=== PATIENT | female | born 1955 | race Caucasian/White ===

== ENCOUNTER 2017-02-09 15:51 | Emergency (ER) | payer SELFPAY ==
[2017-02-09] MEDS ORDERED: BENZONATATE 100 MG CAPSULE PO ONE (17:28)
[2017-02-09] MEDS ORDERED: ALBUTEROL SULFATE 0.083% NEB 2.5 MG/3 ML AMPUL NEB ONE (17:28)
[2017-02-09] MEDS ORDERED: PREDNISONE 20 MG TABLET PO ONE (17:28)
--- NOTE | 2017-02-09 17:33 | ER Document Report ---
ED Respiratory Problem - General Chief Complaint: Cough Stated Complaint: COUGH Time Seen by Provider: 02/09/17 17:24 Notes: 61 yo female c/o cough, chest congestion and shortness of breath x 1 wk. + subjective fever. + hx/o pneumonia. + smoker TRAVEL OUTSIDE OF THE [place] IN LAST 30 DAYS: No - HPI Patient complains to provider of: Cough, Short of breath Onset: Last week Duration: Continuous, Worse/persistent Cough: Nonproductive Sputum amount: Scant Associated symptoms: Chills, Congestion, Extertional dyspnea. denies: Ankle/ leg swelling, Bloody cough, Chest pain/discomfort Similar symptoms previously: Yes Recently seen / treated by doctor: No - Related Data Allergies/Adverse Reactions: Sulfa (Sulfonamide Antibiotics) Allergy (Verified 02/09/17 15:55) Past Medical History - General Information source: Patient - Social History Smoking Status: Current Every Day Smoker Chew tobacco use (# tins/day): No Frequency of alcohol use: None Drug Abuse: None Lives with: Family Family History: Reviewed & Not Pertinent Pulmonary Medical History: Reports: Hx Pneumonia Renal/ Medical History: Denies: Hx Peritoneal Dialysis Review of Systems - Review of Systems Constitutional: No symptoms reported EENT: No symptoms reported Cardiovascular: No symptoms reported Respiratory: See HPI Gastrointestinal: No symptoms reported Genitourinary: No symptoms reported Female Genitourinary: No symptoms reported Musculoskeletal: No symptoms reported Skin: No symptoms reported Hematologic/Lymphatic: No symptoms reported Neurological/Psychological: No symptoms reported Physical Exam - Vital signs Vitals: Temp Pulse Resp BP Pulse Ox 98.7 F 91 18 123/65 93 02/09/17 15:55 02/09/17 15:55 02/09/17 15:55 02/09/17 15:55 02/09/17 15:55 Interpretation: Normal - General General appearance: Appears well, Alert - HEENT Head: Normocephalic, Atraumatic Eyes: Normal Pupils: PERRL - Respiratory Respiratory status: No respiratory distress Chest status: Nontender Breath sounds: Rhonchi, Wheezing Chest palpation: Normal - Cardiovascular Rhythm: Regular Heart sounds: Normal auscultation Murmur: No - Abdominal Inspection: Normal Distension: No distension Bowel sounds: Normal Tenderness: Nontender Organomegaly: No organomegaly - Back Back: Normal, Nontender - Extremities General upper extremity: Normal inspection, Nontender, Normal color, Normal ROM , Normal temperature General lower extremity: Normal inspection, Nontender, Normal color, Normal ROM , Normal temperature, Normal weight bearing. No: Solomon's sign - Neurological Neuro grossly intact: Yes Cognition: Normal Orientation: AAOx4 [place] Coma Scale Eye Opening: Spontaneous [place] Coma Scale Verbal: Oriented Yenni Coma Scale Motor: Obeys Commands Yenni Coma Scale Total: 15 Speech: Normal Motor strength normal: LUE, RUE, LLE, RLE Sensory: Normal - Psychological Associated symptoms: Normal affect, Normal mood - Skin Skin Temperature: Warm Skin Moisture: Dry Skin Color: Normal Course - Re-evaluation Re-evalutation: 02/09/17 18:20 chest xray is negative. results reviewed with patient. breath sounds improved after neb. pt reports feeling better after treatment. speaking without difficulty. H&P c/w URI/bronchitis. low suspicion for pneumonia, CHF, pneumothorax. will treat with bronchodilators, oral steroid and cough suppressant. pt agreeable with plan and stable for discharge - Vital Signs Vital signs: Temp Pulse Resp BP Pulse Ox 98.7 F 91 18 123/65 93 02/09/17 15:55 02/09/17 15:55 02/09/17 15:55 02/09/17 15:55 02/09/17 15:55 Discharge - Discharge Clinical Impression: Bronchitis Condition: Stable Disposition: HOME, SELF-CARE Instructions: Bronchitis ([facility]), Inhaled Bronchodilators ([facility]), Steroid Medication, Cough Suppressant & Expectorant Medications Additional Instructions: Your xray is negative for pneumonia I am treating your for bronchitis Take medications as prescribed Stop smoking follow up with your primary care if symptoms persist return to ER for any worsening Prescriptions: Albuterol Sulfate [Proair HFA Inhalation Aerosol 8.5 gm MDI] 2 puff IH Q4H PRN # 1 mdi PRN Reason: Phenylephrine HCl/Cod/Prometh [Phenergan Vc-Codeine Syrup] 5 - 10 ml PO Q4H # 120 ml Prednisone [Deltasone 10 mg Tablet] 10 mg PO ASDIR PRN #21 tablet PRN Reason:
--- NOTE | 2017-02-09 18:12 | RADIOLOGY REPORT (SQ) ---
EXAM DESCRIPTION: CHEST PA/LAT COMPLETED DATE/TIME: 02/09/2017 6:05 pm REASON FOR STUDY: cough x 1 wk COMPARISON: None. EXAM PARAMETERS: NUMBER OF VIEWS: two views TECHNIQUE: Digital Frontal and Lateral radiographic views of the chest acquired. RADIATION DOSE: NA LIMITATIONS: none FINDINGS: LUNGS AND PLEURA: No opacities, masses or pneumothorax. No pleural effusion. MEDIASTINUM AND HILAR STRUCTURES: No masses or contour abnormalities. HEART AND VASCULAR STRUCTURES: Heart normal size. No evidence for failure. BONES: No acute findings. HARDWARE: None in the chest. OTHER: No other significant finding. IMPRESSION: NO SIGNIFICANT RADIOGRAPHIC FINDING IN THE CHEST. TECHNICAL DOCUMENTATION: JOB ID: [id number] [employer]- All Rights Reserved
[2017-02-09 18:44] VITALS: BP 111/49
== END 2017-02-09 18:43 | disposition home or self-care (01) ==
LOC: ER 15:51
DX: J40 Bronchitis, not specified as acute or chronic (principal); R05 Cough; R09.89 Other specified symptoms and signs involving the circulatory and respiratory systems; R06.02 Shortness of breath; R50.9 Fever, unspecified; F17.200 Nicotine dependence, unspecified, uncomplicated
CPT/HCPCS: 94640; 99283; 71020; J7512

== ENCOUNTER 2017-02-14 09:16 | Inpatient (IN) | payer SELFPAY ==
[2017-02-14] MEDS ORDERED: METHYLPREDNISOLONE INJ 125 MG/2 ML SDV IV ONE (09:30)
[2017-02-14] MEDS ORDERED: IPRATROPIUM/ALBUTEROL 0.5-2.5 MG/3 ML AMPUL NEB ONE ×3 (09:30→09:31)
[2017-02-14] MEDS ORDERED: CEFTRIAXONE 1 GM/D5W RTU 1 GM/50 ML RTUPB IV ONE (09:30)
--- NOTE | 2017-02-14 09:32 | ER Document Report ---
ED Medical Screen (RME) - General Chief Complaint: Breathing Difficulty Stated Complaint: DIFFICULTY BREATHING Time Seen by Provider: 02/14/17 09:30 Mode of Arrival: Ambulatory Information source: Patient Notes: 61-year-old smoker presents with complaints of respiratory difficulty. Patient seen here 5 days prior discharged home as URI syndrome. Patient notes symptoms have worsens, she is noted to be hypoxic tachycardic tachypneic on arrival coarse productive sputum I have greeted and performed a rapid initial assessment of this patient. A comprehensive ED assessment and evaluation of the patient, analysis of test results and completion of the medical decision making process will be conducted by additional ED providers. PHYSICAL EXAMINATION: GENERAL: Patient in moderate respiratory distress HEAD: Atraumatic, normocephalic. EYES: Pupils equal round extraocular movements intact, conjunctiva are normal. ENT: Nares patent NECK: Normal range of motion LUNGS: Moderate respiratory distress coarse wheezing rhocnhi Musculoskeletal: Normal range of motion NEUROLOGICAL: Normal speech, normal gait. PSYCH: Normal mood, normal affect. SKIN: Warm, Dry, normal turgor, no rashes or lesions noted. TRAVEL OUTSIDE OF THE [place] IN LAST 30 DAYS: No - Related Data Allergies/Adverse Reactions: Sulfa (Sulfonamide Antibiotics) Allergy (Verified 02/14/17 09:20) Past Medical History Pulmonary Medical History: Reports: Hx Pneumonia Renal/ Medical History: Denies: Hx Peritoneal Dialysis Physical Exam - Vital signs Vitals: Temp Pulse Resp BP Pulse Ox 98.5 F 113 H 22 H 140/73 H 86 L 02/14/17 09:20 02/14/17 09:20 02/14/17 09:20 02/14/17 09:20 02/14/17 09:20 Course - Vital Signs Vital signs: Temp Pulse Resp BP Pulse Ox 98.5 F 113 H 22 H 140/73 H 86 L 02/14/17 09:20 02/14/17 09:20 02/14/17 09:20 02/14/17 09:20 02/14/17 09:20
--- NOTE | 2017-02-14 09:59 | ER Document Report ---
ED Respiratory Problem - General Chief Complaint: Breathing Difficulty Stated Complaint: DIFFICULTY BREATHING Time Seen by Provider: 02/14/17 09:30 Mode of Arrival: Ambulatory TRAVEL OUTSIDE OF THE [place] IN LAST 30 DAYS: No - HPI Patient complains to provider of: Cough, Short of breath Onset: Other - 2 weeks Duration: Worse/persistent Quality of pain: Achy Severity: Mild Pain Level: 1 Context: Smoker Short of Breath: Moderate Chest pain/discomfort: Tightness Cough: Productive Sputum amount: Small Sputum color: Green, Yellow Sputum consistency: Mucoid At home treatment: Bronchodilators Associated symptoms: Congestion, Cough, Difficulty breathing, Extertional dyspnea Similar symptoms previously: Yes Recently seen / treated by doctor: Yes Notes: Patient is a 61-year-old female with a history of acid reflux, who smokes currently approximately one half pack per day, presenting to the emergency room today complaining of productive cough with yellowish greenish phlegm, mild chest pain from coughing, which worsens with movement, and difficulty breathing with dyspnea on exertion that has been worsening over the past 2 weeks, she was seen in this department on 02/09/2017 for similar symptoms and diagnosed with viral upper respiratory illness, she was started on pro-air inhaler which she has been using at home, but her symptoms have worsened significantly to the point where she can barely ambulate around her house without becoming short of breath, on arrival she is tachypneic and hypoxic, she denies any recent travel or periods of immobilization, no history of blood clots - Related Data Allergies/Adverse Reactions: codeine Allergy (Verified 02/14/17 10:47) Sulfa (Sulfonamide Antibiotics) Allergy (Verified 02/14/17 09:20) Home Medications: Current Home Medications Omeprazole 40 mg PO DAILY 02/14/17 [History] Past Medical History - General Information source: Patient - Social History Smoking Status: Current Every Day Smoker Chew tobacco use (# tins/day): No Frequency of alcohol use: None Drug Abuse: None Family History: Reviewed & Not Pertinent Pulmonary Medical History: Reports: Hx Pneumonia Renal/ Medical History: Denies: Hx Peritoneal Dialysis GI Medical History: Reports: Hx Gastroesophageal Reflux Disease Review of Systems - Review of Systems Constitutional: No symptoms reported EENT: No symptoms reported Cardiovascular: No symptoms reported Respiratory: See HPI Gastrointestinal: No symptoms reported Genitourinary: No symptoms reported Female Genitourinary: No symptoms reported Musculoskeletal: No symptoms reported Skin: No symptoms reported Hematologic/Lymphatic: No symptoms reported Neurological/Psychological: No symptoms reported -: Yes All other systems reviewed and negative Physical Exam - Vital signs Vitals: Temp Pulse Resp BP Pulse Ox 98.5 F 113 H 22 H 140/73 H 86 L 02/14/17 09:20 02/14/17 09:20 02/14/17 09:20 02/14/17 09:20 02/14/17 09:20 Interpretation: Tachycardic, Hypoxic, Tachypneic - General General appearance: Appears well, Alert - HEENT Head: Normocephalic, Atraumatic Eyes: Normal Pupils: PERRL - Respiratory Respiratory status: Labored, Tachypnea Chest status: Nontender Breath sounds: Productive cough, Rhonchi, Wheezing Chest palpation: Normal - Cardiovascular Rhythm: Regular, Tachycardia Heart sounds: Normal auscultation Murmur: No - Abdominal Inspection: Normal Distension: No distension Bowel sounds: Normal Tenderness: Nontender Organomegaly: No organomegaly - Back Back: Normal, Nontender - Extremities General upper extremity: Normal inspection, Nontender, Normal color, Normal ROM , Normal temperature General lower extremity: Normal inspection, Nontender, Normal color, Normal ROM , Normal temperature, Normal weight bearing. No: Solomon's sign - Neurological Neuro grossly intact: Yes Cognition: Normal Orientation: AAOx4 [place] Coma Scale Eye Opening: Spontaneous Yenni Coma Scale Verbal: Oriented Yenni Coma Scale Motor: Obeys Commands [place] Coma Scale Total: 15 Speech: Normal Motor strength normal: LUE, RUE, LLE, RLE Sensory: Normal - Psychological Associated symptoms: Normal affect, Normal mood - Skin Skin Temperature: Warm Skin Moisture: Dry Skin Color: Normal Course - Re-evaluation Re-evalutation: 02/14/17 11:43 Patient becomes tachypneic and hypoxic once oxygen is removed, she continues to require oxygen to keep sats at around 90% or greater, she has a productive cough , leukocytosis, she was recently diagnosed with viral upper respiratory illness , was placed on steroids with albuterol and cough suppressant medication, symptoms have worsened requiring her repeat visit to the emergency room today, symptoms are consistent with COPD exacerbation, with likely underlying pneumonia that is not present on imaging today, therefore patient was discussed with the hospitalist service who agreed to admit for further evaluation and treatment - Vital Signs Vital signs: Temp Pulse Resp BP Pulse Ox 98.5 F 113 H 21 H 118/76 95 02/14/17 09:20 02/14/17 09:20 02/14/17 11:01 02/14/17 11:01 02/14/17 10:01 - Laboratory Result Diagrams: 02/14/17 09:50 02/14/17 09:50 Laboratory results interpreted by me: 02/14/17 02/14/17 09:50 09:50 WBC 19.3 H RDW 14.6 H Seg Neutrophils % 82.6 H Lymphocytes % 9.2 L Absolute Neutrophils 16.0 H Absolute Monocytes 1.5 H Glucose 127 H Calcium 10.4 H Direct Bilirubin 0.5 H Alkaline Phosphatase 165 H Creatine Kinase 175 H - Diagnostic Test Radiology reviewed: Image reviewed, Reports reviewed - EKG Interpretation by Me EKG shows normal: Sinus rhythm Rate: Tachycardia Critical Care Note - Critical Care Note Total time excluding time spent on procedures (mins): 40 Comments: Patient arrived in moderate respiratory distress with tachypnea and hypoxia, requiring immediate intervention, close monitoring and admission Discharge - Discharge Clinical Impression: COPD exacerbation Pneumonia Qualifiers: Pneumonia type: due to unspecified organism Laterality: unspecified laterality Lung location: unspecified part of lung Qualified Code(s): J18.9 - Pneumonia, unspecified organism Condition: Fair Disposition: ADMITTED INPATIENT Admitting Provider: Hospitalist Unit Admitted: Telemetry Referrals: FISH FRANKS MD [Primary Care Provider] - Follow up as needed
[2017-02-14 10:01] LABS: ABSOLUTE BASOPHILS # (AUTO) 0.1 10^3/uL (0.0-0.2); ABSOLUTE LYMPHOCYTES (AUTO) 1.8 10^3/uL (0.5-4.7); ABSOLUTE MONOCYTES (AUTO) 1.5 10^3/uL (0.1-1.4); BASOPHILS % (AUTO) 0.5 % (0-2); EOSINOPHILS % (AUTO) 0.1 % (0-6); HEMATOCRIT 38.9 % (36.0-47.0); HEMOGLOBIN 13.3 g/dL (12.0-15.5); LYMPHOCYTES % (AUTO) 9.2 % (13-45); MEAN CORPUSCULAR HEMOGLOBIN 30.2 pg (27.0-33.4); MEAN CORPUSCULAR HGB CONC 34.1 g/dL (32.0-36.0); MEAN CORPUSCULAR VOLUME 88 fl (80-97); MONOCYTES % (AUTO) 7.6 % (3-13); RED CELL DISTRIBUTION WIDTH 14.6 % (11.5-14.0); SEGMENTED NEUTROPHILS % (AUTO) 82.6 % (42-78); WHITE BLOOD COUNT 19.3 10^3/uL (4.0-10.5)
[2017-02-14 10:02] LABS: VENOUS BLOOD BASE EXCESS 0.9 mmol/L; VENOUS BLOOD HCO3 25.9 mmol/L (20-32); VENOUS BLOOD PCO2 42.6 mmHg (35-63); VENOUS BLOOD PH 7.4 (7.30-7.42)
--- NOTE | 2017-02-14 10:09 | RADIOLOGY REPORT (SQ) ---
EXAM DESCRIPTION: CHEST SINGLE VIEW COMPLETED DATE/TIME: 02/14/2017 9:56 am REASON FOR STUDY: resp distress COMPARISON: 02/09/2017 EXAM PARAMETERS: NUMBER OF VIEWS: One view. TECHNIQUE: Single frontal radiographic view of the chest acquired. RADIATION DOSE: NA LIMITATIONS: None. FINDINGS: LUNGS AND PLEURA: No opacities, masses or pneumothorax. No pleural effusion. MEDIASTINUM AND HILAR STRUCTURES: No masses. Contour normal. HEART AND VASCULAR STRUCTURES: Heart normal in size. Normal vasculature. BONES: No acute findings. HARDWARE: None in the chest. OTHER: No other significant finding. IMPRESSION: NO ACUTE RADIOGRAPHIC FINDING IN THE CHEST. TECHNICAL DOCUMENTATION: JOB ID: [id number]
[2017-02-14 10:20] LABS: ALANINE AMINOTRANSFERASE 32 U/L (9-52); ALKALINE PHOSPHATASE 165 U/L (38-126); ANION GAP 13 (5-19); ASPARTATE AMINO TRANSFERASE 26 U/L (14-36); BILIRUBIN,DIRECT 0.5 mg/dL (0.0-0.4); BILIRUBIN,TOTAL 0.5 mg/dL (0.2-1.3); BLOOD UREA NITROGEN 7 mg/dL (7-20); CALCIUM 10.4 mg/dL (8.4-10.2); CARBON DIOXIDE 27 mmol/L (22-30); CHLORIDE 99 mmol/L (98-107); CREATINE KINASE 175 U/L (30-135); CREATININE RESULT 0.59 mg/dL (0.52-1.25); GLUCOSE 127 mg/dL (75-110); POTASSIUM 3.8 mmol/L (3.6-5.0); SODIUM 139.3 mmol/L (137-145); TOTAL PROTEIN 7.6 g/dL (6.3-8.2)
[2017-02-14 10:40] LABS: CREATINE KINASE MB 2.42 ng/mL (<4.55); TROPONIN I 0.017 ng/mL
[2017-02-14] MEDS ORDERED: BENZONATATE 100 MG CAPSULE PO ONE (11:05)
[2017-02-14] MEDS ORDERED: ALBUTEROL SULFATE 0.083% NEB 2.5 MG/3 ML AMPUL NEB ONE (11:05)
[2017-02-14] MEDS ORDERED: AZITHROMYCIN INJ 500 MG VIAL IV ONE (11:06)
[2017-02-14] MEDS ORDERED: ALBUTEROL SULFATE 0.083% NEB 2.5 MG/3 ML AMPUL NEB PRN (13:46)
[2017-02-14] MEDS ORDERED: ACETAMINOPHEN 325 MG TABLET PO PRN (13:46)
[2017-02-14] MEDS ORDERED: NORMAL SALINE 1000 ML 1,000 ML IV PRN (13:46)
[2017-02-14] MEDS ORDERED: ONDANSETRON HCL INJ/PF 4 MG/2 ML SDV IV PRN (13:53)
[2017-02-14] MEDS ORDERED: LEVOFLOXACIN 750 MG/D5W RTU 750 MG/150 ML RTUPB IV ONE (15:00)
--- NOTE | 2017-02-14 16:23 | PDOC H&P ---
History of Present Illness Admission Date/PCP: 02/14/17 13:46 FISH FRANKS MD Patient complains of: SOB History of Present Illness: MILADYS LINARES is a 61 year old female, who is a chronic smoker presents to the hospital of 2 weeks duration of shortness of breath. There is cough productive of yellowish phlegm. There is some mild sore throat and sinus congestion and subsequently followed by intermittent wheezing. There is associated sweating but no definite fever. The patient was seen in the emergency room 4 days ago and was prescribed bronchodilators and steroids. Recent reports that the x-ray did not reveal any acute infiltrate. She took the medication without relief. Symptoms got worse last night therefore she presents to the hospital for evaluation. Her sinus congestion improved as well as her sore throat but she started to develop some chest congestion as well. She was given bronchodilators in the emergency room and intravenous steroids and was referred for admission. Patient denies any chest pain dizziness or lightheadedness. Past Medical History Pulmonary Medical History: Reports: Pneumonia GI Medical History: Reports: Gastroesophageal Reflux Disease, Other - Umbilical hernia Past Surgical History Past Surgical History: Reports: Herniorrhaphy Social History Information Source: Patient Smoking Status: Current Every Day Smoker Frequency of Alcohol Use: None Hx Recreational Drug Use: No Drugs: None Family History Family History: DM, Malignancy - Breast, Other - Heart failure Parental Family History Reviewed: Yes Children Family History Reviewed: Yes Sibling(s) Family History Reviewed.: Yes Medication/Allergy Home Medications: Omeprazole 40 mg PO DAILY 02/14/17 Allergies/Adverse Reactions: codeine Allergy (Verified 02/14/17 10:47) Sulfa (Sulfonamide Antibiotics) Allergy (Verified 02/14/17 09:20) Review of Systems Constitutional: PRESENT: fatigue, weakness - Generalized. ABSENT: chills, fever (s), headache(s), night sweats, weight gain, weight loss Eyes: ABSENT: visual disturbances Ears: ABSENT: hearing changes Nose, Mouth, and Throat: ABSENT: mouth pain, vertigo Cardiovascular: PRESENT: dyspnea on exertion. ABSENT: chest pain, edema, orthropnea, palpitations Respiratory: PRESENT: cough, dyspnea, sputum. ABSENT: hemoptysis Gastrointestinal: ABSENT: abdominal pain, constipation, diarrhea, hematemesis, hematochezia, melena, nausea, vomiting Genitourinary: ABSENT: difficulty urinating, dysuria, hematuria Musculoskeletal: ABSENT: joint swelling Integumentary: ABSENT: rash, wounds Neurological: ABSENT: abnormal gait, abnormal speech, confusion, dizziness, focal weakness, syncope Psychiatric: ABSENT: anxiety, depression, homidical ideation, suicidal ideation Endocrine: ABSENT: cold intolerance, heat intolerance, polydipsia, polyuria Hematologic/Lymphatic: ABSENT: easy bleeding, easy bruising Physical Exam Vital Signs: Temp Pulse Resp BP Pulse Ox 98.5 F 113 H 18 106/58 L 91 L 02/14/17 09:20 02/14/17 09:20 02/14/17 13:01 02/14/17 13:01 02/14/17 13:01 General appearance: PRESENT: no acute distress, cooperative, mild distress Head exam: PRESENT: atraumatic, normocephalic Eye exam: PRESENT: conjunctiva pink, EOMI, PERRLA. ABSENT: scleral icterus Ear exam: PRESENT: normal external ear exam Mouth exam: PRESENT: moist, neck supple, tongue midline Neck exam: ABSENT: carotid bruit, JVD, lymphadenopathy, thyromegaly Respiratory exam: PRESENT: decreased breath sounds - Anteriorly bilateral, wheezes - Posteriorly bilateral mild. ABSENT: rales, rhonchi Cardiovascular exam: PRESENT: RRR. ABSENT: diastolic murmur, rubs, systolic murmur Pulses: PRESENT: normal dorsalis pedis pul Vascular exam: PRESENT: normal capillary refill GI/Abdominal exam: PRESENT: normal bowel sounds, soft. ABSENT: distended, guarding, mass, organolmegaly, rebound, tenderness Rectal exam: PRESENT: deferred Extremities exam: PRESENT: full ROM. ABSENT: calf tenderness, clubbing, pedal edema Neurological exam: PRESENT: alert, awake, oriented to person, oriented to place , oriented to time, oriented to situation, CN II-XII grossly intact. ABSENT: motor sensory deficit Psychiatric exam: PRESENT: appropriate affect, normal mood. ABSENT: homicidal ideation, suicidal ideation Skin exam: PRESENT: dry, intact, warm. ABSENT: cyanosis, rash Results Impressions: Chest X-Ray 02/14/17 09:30 IMPRESSION: NO ACUTE RADIOGRAPHIC FINDING IN THE CHEST. Assessment & Plan - Diagnosis (1) COPD exacerbation Is this a current diagnosis for this admission?: Yes (2) GERD (gastroesophageal reflux disease) Qualifiers: Esophagitis presence: without esophagitis Qualified Code(s): K21.9 - Gastro -esophageal reflux disease without esophagitis Is this a current diagnosis for this admission?: Yes - Time Time Spent: 50 to 70 Minutes Within: within 72 hours - Inpatient Certification Based on my medical assessment, after consideration of the patient's comorbidities, presenting symptoms, or acuity I expect that the services needed warrant INPATIENT care.: Yes I certify that my determination is in accordance with my understanding of Medicare's requirements for reasonable and necessary INPATIENT services [42 CFR 412.3e].: Yes Medical Necessity: Failure to Improve With Outpatient Therapy, Need for Nebulizer Therapy and Monitoring of Response, Risk of Complication if Not Cared For in Hospital Post 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 [id number] nebulizer will be done. Cultures of the sputum blood were obtained in the emergency room. We will begin intravenous antibiotic. DVT prophylaxis with Lovenox will be placed. Supplemental oxygen will be given. Further testing depends on the initial evaluation and response to treatment as outlined above.
[2017-02-14 18:12] LABS: APPEARANCE,URINE CLEAR; BILIRUBIN,URINE NEGATIVE (NEGATIVE); GLUCOSE, URINE >=500 mg/dL (NEGATIVE); KETONES,URINE NEGATIVE (NEGATIVE); LEUKOCYTE ESTERASE,URINE MODERATE (NEGATIVE); NITRITE,URINE POSITIVE (NEGATIVE); PROTEIN,URINE NEGATIVE (NEGATIVE); URINE SPECIFIC GRAVITY 1.006; UROBILINOGEN,URINE NEGATIVE mg/dL (<2.0)
[2017-02-14] MEDS: DOCUSATE SODIUM 100 MG CAPSULE PO SCH (18:12)
[2017-02-14] MEDS: METHYLPREDNISOLONE INJ 125 MG/2 ML SDV IV SCH (18:12)
[2017-02-14] MEDS: IPRATROPIUM/ALBUTEROL 0.5-2.5 MG/3 ML AMPUL NEB SCH ×2 (18:36→19:35)
--- NOTE | 2017-02-14 21:05 | EKG REPORT ---
SEVERITY:- OTHERWISE NORMAL ECG - SINUS TACHYCARDIA : Confirmed by: Tracy Marie MD 14-Feb-2017 21:03:15
[2017-02-14] MEDS ORDERED: LANSOPRAZOLE 30 MG TAB.RAP.DR PO ONE (21:30)
[2017-02-15] MEDS: IPRATROPIUM/ALBUTEROL 0.5-2.5 MG/3 ML AMPUL NEB SCH ×4 (01:42→20:03)
[2017-02-15] MEDS: METHYLPREDNISOLONE INJ 125 MG/2 ML SDV IV SCH ×3 (01:55→17:27)
[2017-02-15 04:38] LABS: ABSOLUTE LYMPHOCYTES (AUTO) 0.7 10^3/uL (0.5-4.7); ABSOLUTE MONOCYTES (AUTO) 0.3 10^3/uL (0.1-1.4); ABSOLUTE NEUT (AUTO) 11.8 10^3/uL (1.7-8.2); BASOPHILS % (AUTO) 0.1 % (0-2); HEMATOCRIT 35.3 % (36.0-47.0); HEMOGLOBIN 11.7 g/dL (12.0-15.5); HGB HCT DIFFERENCE -0.2; LYMPHOCYTES % (AUTO) 5.5 % (13-45); MEAN CORPUSCULAR HGB CONC 33.3 g/dL (32.0-36.0); MEAN CORPUSCULAR VOLUME 90 fl (80-97); MONOCYTES % (AUTO) 2.7 % (3-13); RED BLOOD COUNT 3.91 10^6/uL (3.72-5.28); RED CELL DISTRIBUTION WIDTH 14.5 % (11.5-14.0); SEGMENTED NEUTROPHILS % (AUTO) 91.7 % (42-78); WHITE BLOOD COUNT 12.8 10^3/uL (4.0-10.5)
[2017-02-15 04:47] LABS: ANION GAP 12 (5-19); BLOOD UREA NITROGEN 10 mg/dL (7-20); CALCIUM 9.5 mg/dL (8.4-10.2); CARBON DIOXIDE 22 mmol/L (22-30); CHLORIDE 103 mmol/L (98-107); CREATININE RESULT 0.61 mg/dL (0.52-1.25); PHOSPHORUS 3.4 mg/dL (2.5-4.5); SODIUM 137.3 mmol/L (137-145)
[2017-02-15 04:57] LABS: GLUCOSE 537 mg/dL (75-110)
[2017-02-15 05:00] LABS: POTASSIUM 4.8 mmol/L (3.6-5.0)
[2017-02-15] MEDS ORDERED: DEXTROSE 50%-WATER 25 GM/50 ML DISP.SYRIN IV PRN ×2 (05:03)
[2017-02-15] MEDS ORDERED: GLUCAGON,HUMAN RECOMB 1 MG INJ IM PRN (05:03)
[2017-02-15] MEDS ORDERED: DEXTROSE 40% GEL 15 GM TUBE PO PRN ×2 (05:03)
[2017-02-15] MEDS ORDERED: INSULIN LISPRO 100 UNIT/ML 3 ML VIAL SUBCUT PRN (05:03)
[2017-02-15] MEDS: LANSOPRAZOLE 30 MG TAB.RAP.DR PO SCH (05:22)
[2017-02-15] MEDS ORDERED: INSULIN LISPRO 100 UNIT/ML 3 ML VIAL SUBCUT ONE ×2 (05:30→10:30)
[2017-02-15] MEDS ORDERED: LANSOPRAZOLE 30 MG TAB.RAP.DR PO SCH (06:00)
[2017-02-15] MEDS: GUAIFENESIN/D-METHORPHAN (200-20 MG) SYRUP 10 ML PO PRN ×2 (08:18→18:54)
[2017-02-15] MEDS: ENOXAPARIN SODIUM INJ 40 MG/0.4 ML DISP.SYRIN SUBCUT SCH (09:30)
[2017-02-15] MEDS: LEVOFLOXACIN 750 MG/D5W RTU 750 MG/150 ML RTUPB IV SCH (09:31)
[2017-02-15] MEDS: METHADONE HCL 10 MG TABLET PO SCH (09:32)
[2017-02-15] MEDS: DOCUSATE SODIUM 100 MG CAPSULE PO SCH ×2 (09:32→17:27)
[2017-02-15] MEDS: INSULIN LISPRO 100 UNIT/ML 3 ML VIAL SUBCUT PRN ×2 (11:39→17:28)
[2017-02-15] MEDS: LACTULOSE SYRUP 20 GM/30 ML UDCUP PO SCH ×2 (11:39→17:27)
--- NOTE | 2017-02-15 15:31 | PDOC PROGRESS REPORT ---
Subjective Progress Note for:: 02/15/17 Subjective:: Patient reports that her breathing is doing better. She does report that she takes methadone daily but forgot to tell the admitting physician yesterday. Physical Exam Vital Signs: Temp Pulse Resp BP Pulse Ox 97.6 F 99 22 H 131/70 H 92 02/15/17 11:41 02/15/17 14:00 02/15/17 13:11 02/15/17 11:41 02/15/17 13:11 Intake & Output 02/14/17 02/15/17 02/16/17 06:59 06:59 06:59 Intake Total 3160 1559 Balance 3160 1559 Weight 65.2 kg General appearance: PRESENT: no acute distress Eye exam: PRESENT: conjunctiva pink. ABSENT: scleral icterus Mouth exam: PRESENT: moist, tongue midline Neck exam: ABSENT: JVD Respiratory exam: PRESENT: wheezes. ABSENT: rales, rhonchi Cardiovascular exam: PRESENT: RRR. ABSENT: diastolic murmur, rubs, systolic murmur GI/Abdominal exam: PRESENT: normal bowel sounds, soft. ABSENT: distended, guarding, mass, organolmegaly, rebound, tenderness Extremities exam: ABSENT: calf tenderness, clubbing, pedal edema Neurological exam: PRESENT: alert, awake, oriented to person, oriented to place , oriented to time, oriented to situation, CN II-XII grossly intact. ABSENT: motor sensory deficit Psychiatric exam: PRESENT: appropriate affect Skin exam: PRESENT: dry, intact, warm. ABSENT: cyanosis, rash Results Laboratory Results: 02/15/17 04:09 02/15/17 04:09 02/14/17 02/15/17 02/15/17 17:55 04:09 04:09 WBC 12.8 H RBC 3.91 Hgb 11.7 L Hct 35.3 L MCV 90 MCH 30.0 MCHC 33.3 RDW 14.5 H Plt Count 360 Seg Neutrophils % 91.7 H Lymphocytes % 5.5 L Monocytes % 2.7 L Eosinophils % 0.0 Basophils % 0.1 Absolute Neutrophils 11.8 H Absolute Lymphocytes 0.7 Absolute Monocytes 0.3 Absolute Eosinophils 0.0 Absolute Basophils 0.0 Sodium 137.3 Potassium 4.8 D Chloride 103 Carbon Dioxide 22 Anion Gap 12 BUN 10 Creatinine 0.61 Est GFR ( Amer) > 60 Est GFR (Non-Af Amer) > 60 Glucose 537 H* Calcium 9.5 Phosphorus 3.4 Magnesium 2.0 Urine Color STRAW Urine Appearance CLEAR Urine pH 7.0 Ur Specific [place] 1.006 Urine Protein NEGATIVE Urine Glucose (UA) >=500 H Urine Ketones NEGATIVE Urine Blood NEGATIVE Urine Nitrite POSITIVE H Ur Leukocyte Esterase MODERATE H Urine WBC (Auto) 19 Urine RBC (Auto) 0 Impressions: Chest X-Ray 02/14/17 09:30 IMPRESSION: NO ACUTE RADIOGRAPHIC FINDING IN THE CHEST. Assessment & Plan - Diagnosis (1) COPD exacerbation Is this a current diagnosis for this admission?: Yes Plan: We will continue with the IV steroids and nebulizers. She reports that her breathing is improved from yesterday. (2) GERD (gastroesophageal reflux disease) Qualifiers: Esophagitis presence: without esophagitis Qualified Code(s): K21.9 - Gastro -esophageal reflux disease without esophagitis Is this a current diagnosis for this admission?: Yes (3) Chronic pain Is this a current diagnosis for this admission?: Yes Plan: We will start the patient back on her usual dose of methadone 80 mg daily. I called the clinic and confirmed this dose myself. (4) Hyperglycemia Is this a current diagnosis for this admission?: Yes Plan: We will cover with sliding scale insulin. Most likely secondary to steroids. - Time Time Spent with patient: 25-34 minutes - Inpatient Certification Medical Necessity: Need Close Monitoring Due to Risk of Patient Decompensation
[2017-02-15] MEDS ORDERED: NICOTINE 14 MG/24 HR PATCH.TD24 TD ONE (19:00)
[2017-02-16] MEDS: GUAIFENESIN/D-METHORPHAN (200-20 MG) SYRUP 10 ML PO PRN ×2 (00:16→18:23)
[2017-02-16] MEDS: LACTULOSE SYRUP 20 GM/30 ML UDCUP PO SCH ×5 (00:17→23:34)
[2017-02-16] MEDS: IPRATROPIUM/ALBUTEROL 0.5-2.5 MG/3 ML AMPUL NEB SCH ×4 (02:24→20:24)
[2017-02-16] MEDS: METHYLPREDNISOLONE INJ 125 MG/2 ML SDV IV SCH (02:55)
[2017-02-16] MEDS: LANSOPRAZOLE 30 MG TAB.RAP.DR PO SCH (06:32)
[2017-02-16 06:52] LABS: HEMATOCRIT 34.4 % (36.0-47.0); HEMOGLOBIN 11.9 g/dL (12.0-15.5); HGB HCT DIFFERENCE 1.3; MEAN CORPUSCULAR HEMOGLOBIN 30.3 pg (27.0-33.4); MEAN CORPUSCULAR HGB CONC 34.5 g/dL (32.0-36.0); MEAN CORPUSCULAR VOLUME 88 fl (80-97); RED BLOOD COUNT 3.92 10^6/uL (3.72-5.28); RED CELL DISTRIBUTION WIDTH 14.2 % (11.5-14.0); WHITE BLOOD COUNT 20.2 10^3/uL (4.0-10.5)
[2017-02-16 06:59] LABS: ANION GAP 9 (5-19); BLOOD UREA NITROGEN 10 mg/dL (7-20); CALCIUM 9.6 mg/dL (8.4-10.2); CARBON DIOXIDE 24 mmol/L (22-30); CHLORIDE 104 mmol/L (98-107); CREATININE RESULT 0.52 mg/dL (0.52-1.25); GLUCOSE 295 mg/dL (75-110); POTASSIUM 4.3 mmol/L (3.6-5.0); SODIUM 137.2 mmol/L (137-145)
[2017-02-16 07:33] LABS: BAND NEUTROPHILS % (MANUAL) 1 % (3-5); BASOPHILS % (MANUAL) 0 % (0-2); EOSINOPHILS % (MANUAL) 0 % (0-6); LYMPHOCYTES % (MANUAL) 1 % (13-45); TOTAL CELLS COUNTED 100
[2017-02-16 07:34] LABS: ANISOCYTOSIS SLIGHT; TOXIC GRANULATION SLIGHT
[2017-02-16] MEDS: METHADONE HCL 10 MG TABLET PO SCH (08:37)
[2017-02-16] MEDS: INSULIN LISPRO 100 UNIT/ML 3 ML VIAL SUBCUT PRN ×2 (09:22→19:27)
[2017-02-16] MEDS: PREDNISONE 20 MG TABLET PO SCH (10:35)
[2017-02-16] MEDS: NICOTINE 14 MG/24 HR PATCH.TD24 TD SCH (10:36)
[2017-02-16] MEDS: LEVOFLOXACIN 750 MG/D5W RTU 750 MG/150 ML RTUPB IV SCH (10:37)
[2017-02-16] MEDS: DOCUSATE SODIUM 100 MG CAPSULE PO SCH ×2 (10:37→18:21)
[2017-02-16] MEDS: ENOXAPARIN SODIUM INJ 40 MG/0.4 ML DISP.SYRIN SUBCUT SCH (10:54)
--- NOTE | 2017-02-16 11:15 | PDOC PROGRESS REPORT ---
Subjective Progress Note for:: 02/16/17 Subjective:: complains of a nonproductive cough. Physical Exam Vital Signs: Temp Pulse Resp BP Pulse Ox 98.6 F 85 22 H 153/89 H 95 02/16/17 07:32 02/16/17 07:59 02/16/17 07:41 02/16/17 07:32 02/16/17 07:59 Intake & Output 02/15/17 02/16/17 02/17/17 06:59 06:59 06:59 Intake Total 3160 3367 Output Total 1900 Balance 3160 1467 Weight 65.2 kg 65.2 kg General appearance: PRESENT: no acute distress Eye exam: PRESENT: conjunctiva pink. ABSENT: scleral icterus Mouth exam: PRESENT: moist, tongue midline Neck exam: ABSENT: JVD Respiratory exam: PRESENT: wheezes. ABSENT: rales, rhonchi Cardiovascular exam: PRESENT: RRR. ABSENT: diastolic murmur, rubs, systolic murmur GI/Abdominal exam: PRESENT: normal bowel sounds, soft. ABSENT: distended, guarding, mass, organolmegaly, rebound, tenderness Extremities exam: ABSENT: calf tenderness, clubbing, pedal edema Neurological exam: PRESENT: alert, awake, oriented to person, oriented to place , oriented to time, oriented to situation, CN II-XII grossly intact. ABSENT: motor sensory deficit Psychiatric exam: PRESENT: appropriate affect Skin exam: PRESENT: dry, intact, warm. ABSENT: cyanosis, rash Results Laboratory Results: 02/16/17 06:24 02/16/17 06:24 02/16/17 02/16/17 06:24 06:24 WBC 20.2 H RBC 3.92 Hgb 11.9 L Hct 34.4 L MCV 88 MCH 30.3 MCHC 34.5 RDW 14.2 H Plt Count 323 Seg Neutrophils % Not Reportable Lymphocytes % Not Reportable Monocytes % Not Reportable Eosinophils % Not Reportable Basophils % Not Reportable Absolute Neutrophils Not Reportable Absolute Lymphocytes Not Reportable Absolute Monocytes Not Reportable Absolute Eosinophils Not Reportable Absolute Basophils Not Reportable Sodium 137.2 Potassium 4.3 Chloride 104 Carbon Dioxide 24 Anion Gap 9 BUN 10 Creatinine 0.52 Est GFR ( Amer) > 60 Est GFR (Non-Af Amer) > 60 Glucose 295 H Calcium 9.6 Impressions: Chest X-Ray 02/14/17 09:30 IMPRESSION: NO ACUTE RADIOGRAPHIC FINDING IN THE CHEST. Assessment & Plan - Diagnosis (1) COPD exacerbation Is this a current diagnosis for this admission?: Yes Plan: We will continue with the IV steroids and nebulizers. She still has wheezing on exam. (2) GERD (gastroesophageal reflux disease) Qualifiers: Esophagitis presence: without esophagitis Qualified Code(s): K21.9 - Gastro -esophageal reflux disease without esophagitis Is this a current diagnosis for this admission?: Yes (3) Chronic pain Is this a current diagnosis for this admission?: Yes Plan: We will continue with her usual dose of methadone 80 mg daily. (4) Hyperglycemia Is this a current diagnosis for this admission?: Yes Plan: We will cover with sliding scale insulin. Most likely secondary to steroids. Patient does have a elevated hemoglobin A1c consistent with diabetes. - Time Time Spent with patient: 25-34 minutes - Inpatient Certification Medical Necessity: Need Close Monitoring Due to Risk of Patient Decompensation
[2017-02-17] MEDS: IPRATROPIUM/ALBUTEROL 0.5-2.5 MG/3 ML AMPUL NEB SCH ×3 (01:48→13:44)
[2017-02-17 05:00] LABS: ABSOLUTE BASOPHILS # (AUTO) 0.1 10^3/uL (0.0-0.2); HEMOGLOBIN 11.5 g/dL (12.0-15.5); LYMPHOCYTES % (AUTO) 18.5 % (13-45); MONOCYTES % (AUTO) 6.9 % (3-13); RED CELL DISTRIBUTION WIDTH 14.2 % (11.5-14.0)
[2017-02-17 05:08] LABS: ABSOLUTE LYMPHOCYTES (AUTO) 3.4 10^3/uL (0.5-4.7); ABSOLUTE MONOCYTES (AUTO) 1.3 10^3/uL (0.1-1.4); ABSOLUTE NEUT (AUTO) 13.6 10^3/uL (1.7-8.2); BASOPHILS % (AUTO) 0.7 % (0-2); EOSINOPHILS % (AUTO) 0.1 % (0-6); HEMATOCRIT 33.9 % (36.0-47.0); HGB HCT DIFFERENCE 0.6; MEAN CORPUSCULAR HEMOGLOBIN 29.9 pg (27.0-33.4); MEAN CORPUSCULAR VOLUME 88 fl (80-97); RED BLOOD COUNT 3.86 10^6/uL (3.72-5.28); SEGMENTED NEUTROPHILS % (AUTO) 73.8 % (42-78); WHITE BLOOD COUNT 18.4 10^3/uL (4.0-10.5)
[2017-02-17 05:15] LABS: ANION GAP 7 (5-19); BLOOD UREA NITROGEN 11 mg/dL (7-20); CALCIUM 9.1 mg/dL (8.4-10.2); CARBON DIOXIDE 27 mmol/L (22-30); CHLORIDE 103 mmol/L (98-107); CREATININE RESULT 0.57 mg/dL (0.52-1.25); GLUCOSE 153 mg/dL (75-110); POTASSIUM 4.1 mmol/L (3.6-5.0); SODIUM 136.9 mmol/L (137-145)
[2017-02-17] MEDS: LANSOPRAZOLE 30 MG TAB.RAP.DR PO SCH (05:20)
[2017-02-17] MEDS: LACTULOSE SYRUP 20 GM/30 ML UDCUP PO SCH (05:20)
[2017-02-17] MEDS: METHADONE HCL 10 MG TABLET PO SCH (08:03)
[2017-02-17] MEDS: DOCUSATE SODIUM 100 MG CAPSULE PO SCH (08:07)
[2017-02-17] MEDS: PREDNISONE 20 MG TABLET PO SCH (08:08)
[2017-02-17] MEDS: GUAIFENESIN/D-METHORPHAN (200-20 MG) SYRUP 10 ML PO PRN (08:10)
[2017-02-17] MEDS: NICOTINE 14 MG/24 HR PATCH.TD24 TD SCH (08:11)
[2017-02-17] MEDS ORDERED: LEVOFLOXACIN 750 MG TABLET PO SCH (10:00)
--- NOTE | 2017-02-17 11:32 | PDOC DISCHARGE SUMMARY ---
General - Admit/Disc Date/PCP Admission Date/Primary Care Provider: 02/14/17 13:46 FISH FRANKS MD Discharge Date: 02/17/17 - Discharge Diagnosis (1) COPD exacerbation Is this a current diagnosis for this admission?: Yes Summary: Patient is still requiring oxygen will be sent home with oxygen. She reports that she has used oxygen previously in the past. (2) GERD (gastroesophageal reflux disease) Is this a current diagnosis for this admission?: Yes (3) Chronic pain Is this a current diagnosis for this admission?: Yes Summary: Patient normally receives methadone 80 mg daily. (4) Hyperglycemia Is this a current diagnosis for this admission?: Yes Summary: Patient had an elevated hemoglobin A1c consistent with mild diabetes. She has been instructed to follow-up with her primary care doctor and to modify her diet. Steroids certainly made her blood sugars worse. - Additional Information Discharge Diet: Diabetic Discharge Activity: Activity As Tolerated Home Medications: Omeprazole 40 mg PO DAILY 02/14/17 Albuterol Sulfate [Ventolin 0.083% Neb 2.5 mg/3 mL Ampul] 2.5 mg NEB [id number] PRN #120 vial.neb 02/17/17 Levofloxacin [Levaquin 750 mg Tablet] 750 mg PO DAILY #4 tablet 02/17/17 Methadone HCl [Dolophine 10 mg Tablet] 80 mg PO DAILY tablet 02/17/17 Nicotine [Nicoderm 14 mg/24 Hr Transdermal Patch] 1 each TD DAILY patch.td24 Prednisone [Deltasone 20 mg Tablet] 10 mg PO DAILY #39 tablet 02/17/17 History of Present Illness History of Present Illness: MILADYS LINARES is a 61 year old female who is a chronic smoker who presents with a two-week history of shortness of breath along with cooperative some yellow sputum. The patient also has had expiratory wheezes. Patient was seen in the emergency room 4 days prior to admission and given steroids and bronchodilators. Patient did not have any infiltrate at that time. She is gotten progressively worse and presented back and was admitted for treatment of acute COPD exacerbation. Hospital Course Hospital Course: 61-year-old female with COPD who presented with a cough of 2 weeks duration along with shortness of breath and wheezing. The patient had been treated previously as an outpatient with oral antibiotics. She was started on Levaquin and IV Solu-Medrol and had improvement in her respiratory status. Patient had resolution of her wheezing and she was back to her baseline respiratory status. The patient however was noted to be hypoxic with oxygen saturations 86. She does relate that she has used oxygen previously. We have ordered her for home oxygen. She will be sent home on a prednisone taper along with Levaquin. The patient also was noted to have hyperglycemia and an elevated hemoglobin A1c consistent with diabetes. This has been made worse with the IV steroids however she has been instructed to watch her diet and follow-up with her primary care doctor and see how her blood sugars do as an outpatient. She will not be started on medications at this time but will need follow-up after she finishes her steroid pack. She also has chronic pain and takes methadone chronically. She was continued on her usual dose and is discharged home. Physical Exam Vital Signs: Temp Pulse Resp BP Pulse Ox 98.6 F 87 20 129/72 H 93 02/17/17 07:21 02/17/17 08:21 02/17/17 08:21 02/17/17 07:21 02/17/17 08:40 Intake & Output 02/16/17 02/17/17 02/18/17 06:59 06:59 06:59 Intake Total 3367 3410 Output Total 1900 2150 Balance 1467 1260 Weight 65.2 kg 66.1 kg General appearance: PRESENT: no acute distress Eye exam: PRESENT: conjunctiva pink. ABSENT: scleral icterus Mouth exam: PRESENT: moist, tongue midline Neck exam: ABSENT: JVD Respiratory exam: PRESENT: clear to auscultation liliya. ABSENT: rales, rhonchi, wheezes Cardiovascular exam: PRESENT: RRR. ABSENT: diastolic murmur, rubs, systolic murmur Pulses: PRESENT: normal dorsalis pedis pul GI/Abdominal exam: PRESENT: normal bowel sounds, soft. ABSENT: distended, guarding, mass, organolmegaly, rebound, tenderness Extremities exam: ABSENT: calf tenderness, clubbing, pedal edema Neurological exam: PRESENT: alert, awake, oriented to person, oriented to place , oriented to time, oriented to situation, CN II-XII grossly intact. ABSENT: motor sensory deficit Psychiatric exam: PRESENT: appropriate affect Skin exam: PRESENT: dry, intact, warm. ABSENT: cyanosis, rash Results Laboratory Results: 02/17/17 04:34 02/17/17 04:34 02/17/17 02/17/17 04:34 04:34 WBC 18.4 H RBC 3.86 Hgb 11.5 L Hct 33.9 L MCV 88 MCH 29.9 MCHC 34.0 RDW 14.2 H Plt Count 297 Seg Neutrophils % 73.8 Lymphocytes % 18.5 Monocytes % 6.9 Eosinophils % 0.1 Basophils % 0.7 Absolute Neutrophils 13.6 H Absolute Lymphocytes 3.4 Absolute Monocytes 1.3 Absolute Eosinophils 0.0 Absolute Basophils 0.1 Sodium 136.9 L Potassium 4.1 Chloride 103 Carbon Dioxide 27 Anion Gap 7 BUN 11 Creatinine 0.57 Est GFR ( Amer) > 60 Est GFR (Non-Af Amer) > 60 Glucose 153 H Calcium 9.1 Impressions: Chest X-Ray 02/14/17 09:30 IMPRESSION: NO ACUTE RADIOGRAPHIC FINDING IN THE CHEST. Qualifiers PATEINT BEING DISCHARGED WITH ANY OF THE FOLLOWING DIAGNOSIS?: No Plan Discharge Plan: Patient is discharged home in stable condition. Will follow with primary care in 2 weeks. Time Spent: Greater than 30 Minutes
[2017-02-17 15:01] VITALS: BP 145/79
== END 2017-02-17 15:26 | disposition home or self-care (01) | DRG 192 ==
LOC: ER 09:16 → UNDOADMIN 11:46 → EH 11:46 → 5 15:38
DX: J44.1 Chronic obstructive pulmonary disease with (acute) exacerbation (principal); R00.0 Tachycardia, unspecified; R09.02 Hypoxemia; R06.00 Dyspnea, unspecified; K21.9 Gastro-esophageal reflux disease without esophagitis; R73.9 Hyperglycemia, unspecified; G89.29 Other chronic pain; F17.210 Nicotine dependence, cigarettes, uncomplicated; Z79.891 Long term (current) use of opiate analgesic
CPT/HCPCS: 36415; 71010; 80048; 80053; 81001; 82550; 82553; 82803; 82962; 83036; 83605; 83735; 83880; 84100; 84484; 85025; 87040; 87070; 87077; 87205; 93005; 93010; 94640; 96365; 96375; 99291; J0456; J0696; J1650; J1815; J1956; J2405; J2930; J3490; J7030; J7512; J7620

== ENCOUNTER 2017-12-22 21:51 | Emergency (ER) | payer OTHER ==
--- NOTE | 2017-12-23 01:20 | ER Document Report ---
ED Extremity Problem, Lower - General Chief Complaint: Foot Pain Stated Complaint: RIGHT FOOT PAIN,SWELLING Time Seen by Provider: 12/23/17 00:17 Mode of Arrival: Ambulatory Information source: Patient Notes: 62-year-old female presents to ED for complaint of bilateral feet swelling starting 2 days ago. She states she was bit some by some bugs a couple days ago and then her feet started swelling. She is diabetic with a history of GERD COPD pneumonia and chronic pain. She states she has also had venous stripping many many years ago. She states she is on chronic pain management for multiple hernias surgeries to her stomach that left her with chronic abdominal pain. She does smoke a half a pack a day. TRAVEL OUTSIDE OF THE [place] IN LAST 30 DAYS: No - HPI Patient complains to provider of: Pain, Swelling - Bilateral feet Location: Ankle, Foot Occurred: Other - 2 days Onset/Duration: Gradual, Persistent Quality of pain: Burning - To the bottoms of her feet, Pressure - Her feet and ankles feel tight Severity: Moderate Pain Level: 4 Context: Other - Bilateral foot pain and swelling tightness with burning to the bottom of the feet Recent injury: No Associated symptoms: Painful ambulation Exacerbated by: Hanging down, Walking Relieved by: Elevation - Related Data Allergies/Adverse Reactions: codeine Allergy (Verified 02/14/17 10:47) Sulfa (Sulfonamide Antibiotics) Allergy (Verified 02/14/17 09:20) Past Medical History - General Information source: Patient - Social History Smoking Status: Current Every Day Smoker Cigarette use (# per day): Yes - Half a pack a day Smoking Education Provided: Yes - 4 minutes Frequency of alcohol use: None Drug Abuse: None Occupation: Working at [employer] 3 weeks ago Lives with: Family Family History: DM, Malignancy - Breast, Other - Heart failure Patient has suicidal ideation: No Patient has homicidal ideation: No - Past Medical History Cardiac Medical History: Reports: Hx Hypercholesterolemia Pulmonary Medical History: Reports: Hx COPD, Hx Pneumonia EENT Medical History: Reports: None Neurological Medical History: Reports: None Endocrine Medical History: Reports: Hx Diabetes Mellitus Type 2 Renal/ Medical History: Reports: None Malignancy Medical History: Reports: None GI Medical History: Reports: Hx Gastroesophageal Reflux Disease, Other - Multiple hernias with hernia surgeries, chronic pain management Skin Medical History: Reports None Psychiatric Medical History: Reports: None Traumatic Medical History: Reports: None Infectious Medical History: Reports: None Past Surgical History: Reports: Hx Abdominal Surgery - Multiple hernia surgeries , Hx Herniorrhaphy, Hx Vascular Surgery - Vein stripping Review of Systems - Review of Systems Constitutional: No symptoms reported EENT: No symptoms reported Cardiovascular: No symptoms reported Respiratory: No symptoms reported Gastrointestinal: No symptoms reported Genitourinary: No symptoms reported Female Genitourinary: No symptoms reported Musculoskeletal: Leg swelling, Ankle swelling, Other - Bilateral feet ankle and lower leg swelling tightness and pain Skin: No symptoms reported Hematologic/Lymphatic: No symptoms reported Neurological/Psychological: No symptoms reported -: Yes All other systems reviewed and negative Physical Exam - Vital signs Vitals: Temp Pulse Resp BP Pulse Ox 99 F 86 18 115/48 L 95 12/22/17 22:01 12/22/17 22:01 12/22/17 22:01 12/22/17 22:01 12/22/17 22:01 Interpretation: Normal - General General appearance: Appears well, Alert - HEENT Head: Normocephalic, Atraumatic Eyes: Normal Pupils: PERRL - Respiratory Respiratory status: No respiratory distress Chest status: Nontender Breath sounds: Normal Chest palpation: Normal - Cardiovascular Rhythm: Regular Heart sounds: Normal auscultation Murmur: No - Abdominal Inspection: Normal Distension: No distension Bowel sounds: Normal Tenderness: Nontender Organomegaly: No organomegaly - Back Back: Normal, Nontender - Extremities General upper extremity: Normal inspection, Nontender, Normal color, Normal ROM , Normal temperature General lower extremity: Normal ROM, Normal temperature, Normal weight bearing. No: Solomon's sign Calf: Tender, Other - swelling Ankle: Tender, Ecchymosis, Edema Foot: Tender, Ecchymosis, Edema - Neurological Neuro grossly intact: Yes Cognition: Normal Orientation: AAOx4 Caroleen Coma Scale Eye Opening: Spontaneous Caroleen Coma Scale Verbal: Oriented Yenni Coma Scale Motor: Obeys Commands Yenni Coma Scale Total: 15 Speech: Normal Motor strength normal: LUE, RUE, LLE, RLE Sensory: Normal - Psychological Associated symptoms: Normal affect, Normal mood - Skin Skin Temperature: Warm Skin Moisture: Dry Skin Color: Normal, Ecchymosis Skin Turgor: Edematous Skin irregularity: Erythema Location of irregularity: Extremities Irregularity with: Swelling, Tenderness Course - Re-evaluation Re-evalutation: 12/23/17 02:43 She was treated for with Keflex for her urinary tract infection. She was instructed to take her lab results and her chest x-ray results to her primary doctor either tomorrow or Tuesday to follow-up for her pedal edema. Patient was instructed to elevate her legs for the next several days until she follows up with her doctor. Patient was scheduled off on Tuesday to ensure that she follows up with her doctor. Patient was able to verbalize understanding and agreement with treatment plan. - Vital Signs Vital signs: Temp Pulse Resp BP Pulse Ox 98.8 F 73 18 118/53 L 97 12/23/17 02:27 12/23/17 02:27 12/23/17 02:27 12/23/17 02:27 12/23/17 02:27 - Laboratory Result Diagrams: 12/23/17 01:30 Laboratory results interpreted by me: 12/23/17 12/23/17 01:30 01:30 BUN 6 L Glucose 131 H Urine Nitrite POSITIVE H Ur Leukocyte Esterase TRACE H - Diagnostic Test Radiology reviewed: Image reviewed, Reports reviewed Discharge - Discharge Clinical Impression: Pedal edema UTI (urinary tract infection) Qualifiers: Urinary tract infection type: site unspecified Hematuria presence: without hematuria Qualified Code(s): N39.0 - Urinary tract infection, site not specified Condition: Stable Disposition: HOME, SELF-CARE Additional Instructions: Edema, Peripheral You have swelling in your legs. This is called peripheral edema. It can be caused by "leaky capillaries," inflammation, disease of the leg veins, or excess salt and water in your body. Edema may be a sign of heart, kidney, or liver disease. A medical evaluation can determine if there is a serious underlying cause for your edema. Avoid prolonged standing. If you must sit for a long time, occasionally get up and walk around or elevate your legs. Support stockings can be helpful in limiting swelling. Often diuretic or water pills are used to remove excess salt and water from your body. Call the doctor or return if you develop increased swelling, pain, or redness, shortness of breath, chest pain, or any other significant change. URINARY TRACT INFECTION: Your evaluation indicates that you have a urinary tract infection. This is due to germs growing in the bladder. This is a common problem. This infection usually responds quickly to antibiotics. Your antibiotic should be taken exactly as prescribed. Drink plenty of fluids -- three to four quarts a day. Occasionally, a bladder anesthetic will be prescribed to help stop the feeling of urgency until the antibiotic has a chance to clear the infection. This may cause your urine to be dark orange. Certain urine infections require a culture. If the doctor obtained a culture, the results will be back in two days. You should call to see if a change in treatment is needed. A repeat urinalysis after you finish treatment is often recommended. The physician will let you know if further testing is required. Call the doctor if you develop fever, chills, flank pain, inability to urinate, or blood in the urine. CEPHALEXIN: The antibiotic you've been prescribed is a member of the cephalosporin class. This type of antibiotic covers a wide variety of infections, including those of the skin, lungs, and urinary tract. It's useful for staph infections. This antibiotic is slightly similar to the penicillin family. In rare cases , a person who is allergic to penicillin will also be allergic to this medication. If you have had a severe allergic reaction to penicillin, and have not taken this antibiotic since that time, notify your doctor. Antibiotics which cover many germs ("broad spectrum" antibiotics) are more likely to cause diarrhea or "yeast" infections. Women prone to vaginal yeast problems may suffer an attack after taking this antibiotic. In infants, oral thrush (white spots "stuck" on the cheek) or yeast diaper rash may result. See your doctor if these problems occur. Call at once if you develop itching, hives , shortness of breath, or lightheadedness. Take your pain medication as prescribed. Your primary doctor first thing in the morning and get an appointment for either Tuesday or Tuesday for your swelling and pain to your feet. I have given you a copy of your lab and your chest x-ray to take to your primary doctor. FOLLOW-UP CARE: If you have been referred to a physician for follow-up care, call the physician s office for an appointment as you were instructed or within the next two days. If you experience worsening or a significant change in your symptoms, notify the physician immediately or return to the Emergency Department at any time for re-evaluation. Prescriptions: Cephalexin Monohydrate [Keflex 500 mg Capsule] 500 mg PO Q6H 5 Days capsule Forms: Smoking Cessation Education, Return to Work Referrals: FISH FRANKS MD [Primary Care Provider] - 12/23/17
[2017-12-23 01:59] LABS: ALANINE AMINOTRANSFERASE 35 U/L (9-52); ALBUMIN 3.9 g/dL (3.5-5.0); ALKALINE PHOSPHATASE 107 U/L (38-126); ANION GAP 12 (5-19); ASPARTATE AMINO TRANSFERASE 28 U/L (14-36); BILIRUBIN,DIRECT 0.2 mg/dL (0.0-0.4); BILIRUBIN,TOTAL 0.5 mg/dL (0.2-1.3); BLOOD UREA NITROGEN 6 mg/dL (7-20); CALCIUM 9.2 mg/dL (8.4-10.2); CARBON DIOXIDE 24 mmol/L (22-30); CHLORIDE 103 mmol/L (98-107); GLUCOSE 131 mg/dL (75-110); POTASSIUM 4.3 mmol/L (3.6-5.0); SODIUM 138.7 mmol/L (137-145); TOTAL PROTEIN 6.8 g/dL (6.3-8.2)
--- NOTE | 2017-12-23 02:17 | RADIOLOGY REPORT (SQ) ---
EXAM DESCRIPTION: XR CHEST 2 VIEWS COMPLETED DATE/TME: 12/23/2017 01:03 CLINICAL HISTORY: 62 years Female, pedal edemal COMPARISON: 9.25.17 FINDINGS: Increased lung volume, prominent interstitium, normal cardiac silhouette, atherosclerosis, right upper abdominal clips, and intact bony thorax. Stable. IMPRESSION: No acute cardiopulmonary findings.
[2017-12-23 02:28] VITALS: BP 118/53
[2017-12-23 02:36] LABS: APPEARANCE,URINE CLEAR; BILIRUBIN,URINE NEGATIVE (NEGATIVE); COLOR,URINE YELLOW; GLUCOSE, URINE NEGATIVE (NEGATIVE); KETONES,URINE NEGATIVE (NEGATIVE); LEUKOCYTE ESTERASE,URINE TRACE (NEGATIVE); NITRITE,URINE POSITIVE (NEGATIVE); PROTEIN,URINE NEGATIVE (NEGATIVE); URINE SPECIFIC GRAVITY 1.003; UROBILINOGEN,URINE NEGATIVE mg/dL (<2.0)
[2017-12-23] MEDS ORDERED: CEPHALEXIN 500 MG CAPSULE PO ONE (02:39)
== END 2017-12-23 02:49 | disposition home or self-care (01) ==
LOC: ER 21:51
DX: R60.0 Localized edema (principal); N39.0 Urinary tract infection, site not specified; M79.671 Pain in right foot; M79.672 Pain in left foot; R58 Hemorrhage, not elsewhere classified; R20.8 Other disturbances of skin sensation; E11.9 Type 2 diabetes mellitus without complications; J44.9 Chronic obstructive pulmonary disease, unspecified; R10.9 Unspecified abdominal pain; G89.29 Other chronic pain; F17.210 Nicotine dependence, cigarettes, uncomplicated; Z71.6 Tobacco abuse counseling; Z88.5 Allergy status to narcotic agent; Z88.2 Allergy status to sulfonamides
CPT/HCPCS: 36415; 71046; 80053; 81001; 83880; 87086; 87088; 87186; 99284; 99406